=== PATIENT | male | born 2000 | race Caucasian/White ===

== ENCOUNTER 2020-11-27 16:31 | Emergency (ER) | payer SELFPAY ==
[~2020-11-27] VITALS: Ht 167.6 cm; Wt 77.6 kg
--- NOTE | 2020-11-27 16:31 | NUR ---
PT BIB SELF C/O R SHOULDER PAIN. POSSIBLE DISLOCATION. PT IS AAOX4, NOT IN RESPIRATORY DISTRESS, HOOKED TO CREATIVE MANAGER, KEPT RESTED AND COMFORTABLE. WILL CONTINUE TO MONITOR.
--- NOTE | 2020-11-27 16:47 | NUR ---
SEEN AND EXAMINED BY .
[2020-11-27] MEDS ORDERED: HYDROMORPHONE 1 MG/1 ML DISP.SYRIN ONE (16:49)
--- NOTE | 2020-11-27 16:50 | NUR ---
IV LINE ESTABLISHED G18 L AC.
--- NOTE | 2020-11-27 16:55 | NUR ---
AIR TRAFFIC SUPERVISOR AT BEDSIDE FOR XRAY.
[2020-11-27] MEDS ORDERED: IV NS 0.9% 1,000 ML IV ONE (17:00)
[2020-11-27] MEDS ORDERED: HYDROMORPHONE 1 MG/1 ML DISP.SYRIN IV ONE (17:00)
[2020-11-27] MEDS ORDERED: PROPOFOL 20 ML IV ONE (17:45)
--- NOTE | 2020-11-27 17:50 | NUR ---
RT,MD AND RN AT BEDSIDE FOR MODERATE SEDATION.
[2020-11-27] MEDS ORDERED: PROPOFOL 200 MG/20 ML VIAL IV ONE (18:00)
--- NOTE | 2020-11-27 18:15 | NUR ---
RESORT DESK CLERK AT BEDSIDE FOR XRAY POST REDUCTION.
[2020-11-27] MEDS ORDERED: IBUP-1955 PO (19:03)
--- NOTE | 2020-11-27 19:45 | NUR ---
Patient discharged to home in stable condition. Written and verbal after care instructions given. Patient verbalizes understanding of instruction.IV removed. Catheter intact and site benign. Pressure and 4x4 applied to site. No bleeding noted. Pt ambulatory with a steady gait
[2020-11-27 19:47] VITALS: BP 124/62
== END 2020-11-27 19:48 | disposition home or self-care (01) ==
LOC: ER 16:31
DX: S43.084A Other dislocation of right shoulder joint, initial encounter (principal); E86.0 Dehydration; X58.XXXA Exposure to other specified factors, initial encounter; Y93.89 Activity, other specified; Y92.89 Other specified places as the place of occurrence of the external cause; Y99.8 Other external cause status
CPT/HCPCS: 23650; 73030 ×2; 96361; 96374; 99152; 99285; J1170; J2704; J7030; G0500